=== PATIENT | male | born 1970 | race Caucasian/White ===

== ENCOUNTER 2020-08-07 08:25 | Emergency (ER) | payer OTHER ==
[~2020-08-07] VITALS: Ht 175.3 cm; Wt 61.4 kg
[~2020-08-07 08:25] MED LIST: LIDOcaine 1% 30ml preserv. free vial ONE; NICO-687 TD; OXYC-150 PO
[2020-08-07 08:39] VITALS: BP 154/100
[2020-08-07] MEDS ORDERED: LIDOcaine 1% 30ml preserv. free vial IJ ONE (08:55)
[2020-08-07] MEDS ORDERED: BUPIVAcaine 0.5% W/EPI /PF 30ml vial SQ ONE ×2 (09:38→09:39)
[2020-08-07] MEDS ORDERED: BUPIVAcaine 0.5% W/EPI /PF 30ml vial IJ ONE (09:39)
== END 2020-08-07 10:20 | disposition home or self-care (01) ==
LOC: ER 08:26
DX: G89.18 Other acute postprocedural pain (principal); M79.605 Pain in left leg; Z98.890 Other specified postprocedural states; F17.200 Nicotine dependence, unspecified, uncomplicated; Z72.89 Other problems related to lifestyle; Z79.899 Other long term (current) drug therapy
CPT/HCPCS: 64447; 99284; J2001; 64450

== ENCOUNTER 2020-08-09 11:20 | Emergency (ER) | payer OTHER ==
[~2020-08-09] VITALS: Ht 175.3 cm; Wt 70.0 kg
[~2020-08-09 11:20] MED LIST changes: -LIDOcaine 1% 30ml preserv. free vial ONE
[2020-08-09 11:33] VITALS: BP 120/80
--- NOTE | 2020-08-09 14:22 | NUR ---
NOT IN LOBBY
[2020-08-10] MEDS ORDERED: HYDR-3965 PO (11:18)
== END 2020-08-09 14:23 | disposition left against medical advice (07) ==
LOC: ER 11:20
DX: T83.091A Other mechanical complication of indwelling urethral catheter, initial encounter (principal); Z53.21 Procedure and treatment not carried out due to patient leaving prior to being seen by health care provider

== ENCOUNTER 2020-08-10 09:48 | Emergency (ER) | payer OTHER ==
[~2020-08-10] VITALS: Ht 175.3 cm; Wt 70.0 kg
[2020-08-10 10:00] VITALS: BP 139/89
[2020-08-10] MEDS ORDERED: HYDR-3965 PO (11:18)
[2020-08-10] MEDS ORDERED: HYDROcodone/acetaminophen 10/325mg tab PO ONE (11:35)
== END 2020-08-10 11:51 | disposition home or self-care (01) ==
LOC: ER 09:48
DX: M96.840 Postprocedural hematoma of a musculoskeletal structure following a musculoskeletal system procedure (principal); Z87.81 Personal history of (healed) traumatic fracture; Z72.89 Other problems related to lifestyle; Z98.890 Other specified postprocedural states; Z79.899 Other long term (current) drug therapy; Y84.6 Urinary catheterization as the cause of abnormal reaction of the patient, or of later complication, without mention of misadventure at the time of the procedure; Y79.1 Therapeutic (nonsurgical) and rehabilitative orthopedic devices associated with adverse incidents; Y92.89 Other specified places as the place of occurrence of the external cause
CPT/HCPCS: 99283

== ENCOUNTER 2020-09-23 21:05 | Inpatient (IN) | payer OTHER ==
[~2020-09-23] VITALS: Ht 177.8 cm; Wt 63.6 kg
[~2020-09-23 21:05] MED LIST changes: +ASPI-1 PO; +CELE100C98 PO; +GABA300C PO; -NICO-687 TD; -OXYC-150 PO; +OXYC1TAB17 PO; +SENN-173 PO
[2020-09-23 21:40] LABS: BASOPHILS # (AUTO) 0.1 X10'3 (0-0.2); BASOPHILS % (AUTO) 1.1 % (0-1); EOSINOPHILS # (AUTO) 0.2 X10'3 (0-0.9); EOSINOPHILS % (AUTO) 2.6 % (0-6); HEMATOCRIT 37.6 % (42.0-52.0); LYMPHOCYTES # (AUTO) 1.7 X10'3 (1.1-4.8); LYMPHOCYTES % (AUTO) 17.9 % (21-51); MEAN CORPUSCULAR HEMOGLOBIN 33.5 PG (27.0-31.0); MEAN CORPUSCULAR HGB CONC 34.7 g/dL (33.0-36.5); MEAN CORPUSCULAR VOLUME 96.6 FL (78-98); MEAN PLATELET VOLUME 7.6 FL (7.4-10.4); MONOCYTES # (AUTO) 0.9 X10'3 (0-0.9); MONOCYTES % (AUTO) 9.6 % (2-12); NEUTROPHILS # (AUTO) 6.4 X10'3 (1.8-7.7); NEUTROPHILS % (AUTO) 68.8 % (42-75); PLATELET COUNT 224 X10'3 (140-440); RED BLOOD COUNT 3.89 X10'6 (4.70-6.10); RED CELL DISTRIBUTION WIDTH 13.3 % (11.5-14.5); WHITE BLOOD COUNT 9.3 X10'3 (4.5-11.0)
[2020-09-23 21:50] LABS: ALANINE AMINOTRANSFERASE 23 U/L (12-78); ALBUMIN 3.7 G/DL (3.4-5.0); ALBUMIN/GLOBULIN RATIO 0.9 (1.1-1.5); ALKALINE PHOSPHATASE 87 IU/L (46-116); ANION GAP 8 (8-16); ASPARTATE AMINO TRANSFERASE 21 U/L (10-37); BILIRUBIN,TOTAL 0.3 MG/DL (0.1-1.0); BLOOD UREA NITROGEN 12 MG/DL (7-18); BUN/CREATININE RATIO 12.9 (5.4-32.0); CALCIUM 8.7 MG/DL (8.5-10.1); CHLORIDE 100 MMOL/L (99-107); CREATININE 0.93 MG/DL (0.60-1.10); GLUCOSE 115 MG/DL (70-104); POTASSIUM 3.9 MMOL/L (3.5-5.1); SODIUM 133 MMOL/L (135-145); TOTAL CARBON DIOXIDE 25.1 MMOL/L (24-32); TOTAL PROTEIN 7.6 G/DL (6.4-8.2); eGFR 86 ML/MIN
[2020-09-23] MEDS ORDERED: vancomycin/NS 1 GM ADD-VANTAGE 250 ML IV ONE (22:20)
[2020-09-23] MEDS ORDERED: normal saline 1000ml 1,000 ML IV ONE (22:20)
[2020-09-23] MEDS ORDERED: morphine 4 MG/ML inj SYRINge IV ONE ×2 (22:20→23:55)
[2020-09-23] MEDS ORDERED: piperacillin/tazo 3.375gm/50ml 50 ML IV ONE (22:20)
[2020-09-23] MEDS ORDERED: ondansetron/PF 4mg/2ml inj IV ONE ×2 (22:20→22:40)
[2020-09-23 22:25] LABS: CLARITY,URINE CLEAR (Clear); COLOR,URINE STRAW (Yellow); GLUCOSE, URINE NEGATIVE (Neg); KETONES,URINE NEGATIVE (Neg); LEUKOCYTE ESTERASE ,URINE NEGATIVE (Neg); NITRITES, URINE NEGATIVE (Neg); OCCULT BLOOD,URINE NEGATIVE (Neg); PROTEIN,URINE NEGATIVE (Neg); UA COLLECTION TYPE URINAL; UROBILINOGEN,URINE 0.2 E.U/dL (0.2-1.0)
[2020-09-24] MEDS ORDERED: PER5325T PO (00:48)
[2020-09-24] MEDS ORDERED: CELE-193 PO (00:48)
[2020-09-24] MEDS ORDERED: ASPI-1265 PO (00:48)
[2020-09-24] MEDS ORDERED: GABA-530 PO (00:48)
[2020-09-24] MEDS ORDERED: oxyCODONE/APAP 5-325mg tablet PO ONE (01:30)
[2020-09-24] MEDS ORDERED: potassium Cl 40MEQ/1/2NS 520ml 520 ML IV PRN ×2 (01:50)
[2020-09-24] MEDS ORDERED: normal saline 1000ml 1,000 ML IV SCH (01:50)
[2020-09-24] MEDS ORDERED: ondansetron/PF 4mg/2ml inj IV PRN (01:50)
[2020-09-24] MEDS ORDERED: acetaminophen 325mg tablet PO PRN (01:50)
[2020-09-24] MEDS: nicotine 7mg patch - 24hr TD SCH (01:58)
[2020-09-24] MEDS: HYDROmorphone 1 mg/ml syringe IV PRN (05:31)
--- NOTE | 2020-09-24 07:43 | NUR ---
Patient in room ED 6. I have received report from Itzel Aguila from ED and had the opportunity to ask questions and assume patient care.
[2020-09-24 08:00] VITALS: BP 115/74
[2020-09-24] MEDS: K and/or MAG REPLACEMENT MC SCH ×2 (08:00→20:00)
[2020-09-24] MEDS ORDERED: piperacillin/tazo 3.375gm/50ml 50 ML IV SCH (08:00)
[2020-09-24] MEDS ORDERED: oxyCODONE/APAP 10/325mg tablet PO PRN (08:05)
[2020-09-24] MEDS: oxyCODONE/APAP 10/325mg tablet PO PRN ×4 (08:20→21:13)
[2020-09-24 10:00] VITALS: BP 127/88
--- NOTE | 2020-09-24 10:30 | NUR ---
Student documentation: I have reviewed and agree with all interventions, assessments performed and documented by Liss PAULSON.
[2020-09-24] MEDS: vancomycin/NS 1 GM ADD-VANTAGE 250 ML IV SCH ×2 (12:00→22:06)
--- NOTE | 2020-09-24 16:27 | NUR ---
Problems reprioritized. Patient report given, questions answered & plan of care reviewed with nicol RN in surgical .
[2020-09-24] MEDS: CEFEPIME 2gm in D5W 50mL 50 ML IV SCH (16:40)
[2020-09-24 18:00] VITALS: BP 123/80
--- NOTE | 2020-09-24 18:16 | NUR ---
PAGER ID: [phone] MESSAGE: Javier Collins#[id number] - Pt is very itchy can he please have some Benadryl. Thank you, Yarelis [phone]
--- NOTE | 2020-09-24 18:17 | NUR ---
Problems reprioritized. Patient report given, questions answered & plan of care reviewed with Andrea Aguila traveler nurse.
--- NOTE | 2020-09-24 18:32 | NUR ---
Patient in room ORTHO 4020. I have received report from WENDY Santoyo and had the opportunity to ask questions and assume patient care.
[2020-09-24] MEDS: diphenhydrAMINE 25mg capsule PO PRN (19:00)
[2020-09-24] MEDS: lactobacillus rhamnosus 10,000 MMU CELLS/CAPSULE PO SCH (20:34)
[2020-09-24 21:31] VITALS: BP 128/78
[2020-09-25] VITALS (23 sets, daily range): BP systolic 116–141; BP diastolic 65–93
[2020-09-25] MEDS: CEFEPIME 2gm in D5W 50mL 50 ML IV SCH ×3 (00:27→16:44)
[2020-09-25] MEDS: oxyCODONE/APAP 10/325mg tablet PO PRN ×4 (01:31→20:53)
[2020-09-25] MEDS: nicotine 7mg patch - 24hr TD SCH ×2 (01:50→07:11)
[2020-09-25 06:08] LABS: BASOPHILS % (AUTO) 0.5 % (0-1); EOSINOPHILS # (AUTO) 0.2 X10'3 (0-0.9); HEMATOCRIT 37.5 % (42.0-52.0); HEMOGLOBIN 13.1 g/dl (14.0-17.9); MEAN PLATELET VOLUME 7.8 FL (7.4-10.4); MONOCYTES # (AUTO) 1.2 X10'3 (0-0.9)
[2020-09-25 06:11] LABS: LYMPHOCYTES % (AUTO) 10.5 % (21-51); MEAN CORPUSCULAR VOLUME 96.9 FL (78-98); MONOCYTES % (AUTO) 12.3 % (2-12); NEUTROPHILS # (AUTO) 7.4 X10'3 (1.8-7.7); NEUTROPHILS % (AUTO) 74.7 % (42-75); PLATELET COUNT 230 X10'3 (140-440); RED BLOOD COUNT 3.87 X10'6 (4.70-6.10); RED CELL DISTRIBUTION WIDTH 13.1 % (11.5-14.5); WHITE BLOOD COUNT 9.9 X10'3 (4.5-11.0)
--- NOTE | 2020-09-25 06:18 | NUR ---
Problems reprioritized. Patient report given, questions answered & plan of care reviewed with WENDY Gonzáles.
[2020-09-25 06:30] LABS: ALANINE AMINOTRANSFERASE 23 U/L (12-78); ALBUMIN 3.1 G/DL (3.4-5.0); ALBUMIN/GLOBULIN RATIO 0.8 (1.1-1.5); ALKALINE PHOSPHATASE 75 IU/L (46-116); ANION GAP 7 (8-16); ASPARTATE AMINO TRANSFERASE 16 U/L (10-37); BILIRUBIN,TOTAL 0.6 MG/DL (0.1-1.0); BLOOD UREA NITROGEN 7 MG/DL (7-18); BUN/CREATININE RATIO 7.7 (5.4-32.0); CALCIUM 9.2 MG/DL (8.5-10.1); CHLORIDE 101 MMOL/L (99-107); CREATININE 0.91 MG/DL (0.60-1.10); GLUCOSE 118 MG/DL (70-104); SODIUM 138 MMOL/L (135-145); eGFR 88 ML/MIN
[2020-09-25] MEDS: diphenhydrAMINE 25mg capsule PO PRN ×2 (07:10→16:51)
[2020-09-25] MEDS: lactobacillus rhamnosus 10,000 MMU CELLS/CAPSULE PO SCH ×2 (07:10→23:31)
[2020-09-25] MEDS: K and/or MAG REPLACEMENT MC SCH ×2 (07:19→20:00)
[2020-09-25] MEDS ORDERED: ringers solution, lacted 1,000 ML IV SCH ×2 (09:55→11:40)
[2020-09-25] MEDS ORDERED: VANCOMYCIN LEVEL IV ONE ×2 (10:30→22:30)
[2020-09-25] MEDS: vancomycin/NS 1 GM ADD-VANTAGE 250 ML IV SCH ×2 (11:26→23:31)
[2020-09-25] MEDS ORDERED: morphine 4 MG/ML inj SYRINge IV PRN (11:40)
[2020-09-25] MEDS ORDERED: fentaNYL/PF 50MCG/1 ML 2ML syringe IV PRN ×2 (11:40)
[2020-09-25] MEDS ORDERED: hydrALAZINE 20mg/ml inj. IV PRN (11:40)
[2020-09-25] MEDS ORDERED: labetalol 20mg/4ml (5mg/ml) syringe IV PRN (11:40)
[2020-09-25] MEDS ORDERED: ondansetron/PF 4mg/2ml inj IV PRN (11:40)
[2020-09-25] MEDS ORDERED: morphine 2 MG/ML inj. syringe IV PRN (11:40)
[2020-09-25] MEDS ORDERED: midazolam 1 mg/ML 2ml injection ONE (11:48)
[2020-09-25] MEDS ORDERED: fentaNYL/PF 50MCG/1 ML 2ML syringe ONE (11:48)
[2020-09-25] MEDS ORDERED: propofol inj 20 ML IV ONE (11:49)
[2020-09-25] MEDS ORDERED: LIDOcaine 2% (20mg/ml) 5ml vial ONE (11:49)
[2020-09-25] MEDS ORDERED: BUPIVAcaine/PF 2.5 mg/ml (0.25%) 30ml vial ONE (11:55)
[2020-09-25] MEDS ORDERED: dexamethasone sod phosphate 10mg/ml inj ONE (11:57)
[2020-09-25] MEDS ORDERED: sevoflurane 250ml liquid IH ONE (11:57)
[2020-09-25] MEDS ORDERED: ondansetron/PF 4mg/2ml inj ONE (12:04)
[2020-09-25] MEDS ORDERED: naloxone 0.4 mg/ml inj ONE (12:44)
--- NOTE | 2020-09-25 12:52 | NUR ---
Received from OR via BED, accompanied by Anesthesiologist DR ADAIR and report given by Anesthesiologist. PT AWAKE, DROWSY, DENIES PAIN, LEFT LEG/FOOT FROM TOES TO BELOW KNEE IN SPLINT W/CRISTY WRAP COVERING CDI, TOES PWD, CAD OPERATOR 1-2 SECONDS. LLE ELEVATED ON LEG ELEVATOR. Addendum: 09/25/20 at 1338 by Lou Bass RN Amended: Links added.
[2020-09-25] MEDS ORDERED: meperidine/PF 25mg/ml syringe IV ONE (13:05)
--- NOTE | 2020-09-25 14:02 | NUR ---
Report called to receiving nurse. Transferred via BED, NO Belongings. PT STATES IS COMFORTABLE, LLE REMAINS ELEVATED. RECEIVING RN AT BEDSIDE TO RECEIVE PT, BLL, CALL LIGHT GIVEN, SIDE RAILS UP X 2. Special Issues communicated to receiving nurse. YES. Addendum: 09/25/20 at 1412 by Lou Bass RN Amended: Links added.
--- NOTE | 2020-09-25 18:00 | NUR ---
Patient in room ORTHO 4020. I have received report from Nivia NGUYEN and had the opportunity to ask questions and assume patient care. Addendum: 09/25/20 at 1856 by Abby Argueta RN Amended: Links added.
--- NOTE | 2020-09-25 18:27 | NUR ---
Problems reprioritized. Patient report given, questions answered & plan of care reviewed with Abby Aguila.
--- NOTE | 2020-09-25 22:00 | NUR ---
Pt. awake A & O at this time. Postoperative left ankle in the with short cast in place. Pt. able to winkle toes freely and sensation present on assessment. Reminded pt. about non weight bearing status; pt. verbalized understanding. Call light within reach. Addendum: 09/26/20 at 0326 by Abby Argueta RN Amended: Links added.
[2020-09-26] MEDS: CEFEPIME 2gm in D5W 50mL 50 ML IV SCH (01:36)
[2020-09-26] MEDS: oxyCODONE/APAP 10/325mg tablet PO PRN ×5 (01:48→20:13)
[2020-09-26 01:55] VITALS: BP 117/74
[2020-09-26 05:24] VITALS: BP 107/67
[2020-09-26 06:00] VITALS: BP 107/67
--- NOTE | 2020-09-26 06:00 | NUR ---
Problems reprioritized. Patient report given, questions answered & plan of care reviewed with Nivia NGUYEN. Addendum: 09/26/20 at 0747 by Abby Argueta RN Amended: Links added.
[2020-09-26 06:34] LABS: BASOPHILS % (AUTO) 0.1 % (0-1); EOSINOPHILS % (AUTO) 0 % (0-6); HEMATOCRIT 34.4 % (42.0-52.0); LYMPHOCYTES # (AUTO) 0.5 X10'3 (1.1-4.8); LYMPHOCYTES % (AUTO) 4.8 % (21-51); MEAN CORPUSCULAR HEMOGLOBIN 33.8 PG (27.0-31.0); MEAN CORPUSCULAR VOLUME 96.5 FL (78-98); MEAN PLATELET VOLUME 7.7 FL (7.4-10.4); MONOCYTES # (AUTO) 0.9 X10'3 (0-0.9); MONOCYTES % (AUTO) 8.2 % (2-12); NEUTROPHILS # (AUTO) 9.7 X10'3 (1.8-7.7); NEUTROPHILS % (AUTO) 86.9 % (42-75); PLATELET COUNT 254 X10'3 (140-440); RED BLOOD COUNT 3.57 X10'6 (4.70-6.10); RED CELL DISTRIBUTION WIDTH 13.2 % (11.5-14.5); WHITE BLOOD COUNT 11.2 X10'3 (4.5-11.0)
[2020-09-26 06:40] LABS: ALANINE AMINOTRANSFERASE 15 U/L (12-78); ALBUMIN 2.9 G/DL (3.4-5.0); ALBUMIN/GLOBULIN RATIO 0.7 (1.1-1.5); ALKALINE PHOSPHATASE 69 IU/L (46-116); ANION GAP 8 (8-16); ASPARTATE AMINO TRANSFERASE 14 U/L (10-37); BILIRUBIN,TOTAL 0.4 MG/DL (0.1-1.0); BLOOD UREA NITROGEN 8 MG/DL (7-18); BUN/CREATININE RATIO 10.7 (5.4-32.0); CALCIUM 9.3 MG/DL (8.5-10.1); CHLORIDE 103 MMOL/L (99-107); CREATININE 0.75 MG/DL (0.60-1.10); GLUCOSE 139 MG/DL (70-104); POTASSIUM 4.3 MMOL/L (3.5-5.1); SODIUM 139 MMOL/L (135-145); TOTAL PROTEIN 6.9 G/DL (6.4-8.2); eGFR > 90 ML/MIN
[2020-09-26] MEDS: K and/or MAG REPLACEMENT MC SCH ×2 (08:00→18:49)
[2020-09-26] MEDS: lactobacillus rhamnosus 10,000 MMU CELLS/CAPSULE PO SCH ×2 (08:22→20:07)
[2020-09-26] MEDS: nicotine 7mg patch - 24hr TD SCH (08:23)
[2020-09-26 10:00] VITALS: BP 126/74
[2020-09-26] MEDS ORDERED: VANCOMYCIN LEVEL IV ONE (10:30)
[2020-09-26] MEDS: vancomycin/NS 1 GM ADD-VANTAGE 250 ML IV SCH (10:57)
[2020-09-26] MEDS: miconazole nitrate cream 57gm TP SCH (13:26)
[2020-09-26] MEDS: HYDROmorphone 1 mg/ml syringe IV PRN (17:34)
[2020-09-26 18:09] VITALS: BP 108/64
--- NOTE | 2020-09-26 18:30 | NUR ---
Report rec'd from benjy Gonzáles.
[2020-09-27] MEDS: oxyCODONE/APAP 10/325mg tablet PO PRN ×4 (00:29→17:30)
[2020-09-27 01:19] VITALS: BP 124/74
[2020-09-27 06:00] VITALS: BP 131/82
[2020-09-27 06:36] LABS: ALANINE AMINOTRANSFERASE 21 U/L (12-78); ALBUMIN 2.9 G/DL (3.4-5.0); ALBUMIN/GLOBULIN RATIO 0.7 (1.1-1.5); ALKALINE PHOSPHATASE 61 IU/L (46-116); ANION GAP 5 (8-16); ASPARTATE AMINO TRANSFERASE 14 U/L (10-37); BILIRUBIN,TOTAL 0.2 MG/DL (0.1-1.0); BLOOD UREA NITROGEN 10 MG/DL (7-18); BUN/CREATININE RATIO 11.9 (5.4-32.0); CALCIUM 9.1 MG/DL (8.5-10.1); CHLORIDE 104 MMOL/L (99-107); CREATININE 0.84 MG/DL (0.60-1.10); GLUCOSE 99 MG/DL (70-104); POTASSIUM 3.4 MMOL/L (3.5-5.1); SODIUM 139 MMOL/L (135-145); TOTAL CARBON DIOXIDE 29.6 MMOL/L (24-32); TOTAL PROTEIN 6.8 G/DL (6.4-8.2); eGFR > 90 ML/MIN
--- NOTE | 2020-09-27 06:38 | NUR ---
Report given to benjy Trujillo.
--- NOTE | 2020-09-27 06:40 | NUR ---
Patient in room ORTHO 4020. I have received report from Leidy NGUYEN and had the opportunity to ask questions and assume patient care.
[2020-09-27 06:41] LABS: BASOPHILS # (AUTO) 0.1 X10'3 (0-0.2); EOSINOPHILS # (AUTO) 0.1 X10'3 (0-0.9); EOSINOPHILS % (AUTO) 1.3 % (0-6); HEMATOCRIT 33.4 % (42.0-52.0); HEMOGLOBIN 11.7 g/dl (14.0-17.9); LYMPHOCYTES # (AUTO) 1.9 X10'3 (1.1-4.8); MEAN CORPUSCULAR HEMOGLOBIN 34.1 PG (27.0-31.0); MEAN CORPUSCULAR HGB CONC 35.1 g/dL (33.0-36.5); MEAN CORPUSCULAR VOLUME 97.2 FL (78-98); MEAN PLATELET VOLUME 7.5 FL (7.4-10.4); MONOCYTES # (AUTO) 0.6 X10'3 (0-0.9); MONOCYTES % (AUTO) 9.2 % (2-12); NEUTROPHILS # (AUTO) 3.8 X10'3 (1.8-7.7); NEUTROPHILS % (AUTO) 59.5 % (42-75); PLATELET COUNT 263 X10'3 (140-440); RED BLOOD COUNT 3.44 X10'6 (4.70-6.10); RED CELL DISTRIBUTION WIDTH 13.3 % (11.5-14.5); WHITE BLOOD COUNT 6.5 X10'3 (4.5-11.0)
[2020-09-27] MEDS ORDERED: potassium Cl 20 mEq SR tablet PO PRN ×2 (08:15)
[2020-09-27] MEDS ORDERED: magnesium 4gm in 100ml NS 100 ML IV PRN (08:15)
[2020-09-27] MEDS ORDERED: potassium Cl 40MEQ/1/2NS 520ml 520 ML IV PRN (08:15)
[2020-09-27] MEDS ORDERED: magnesium Cl slow-release 64mg tablet PO PRN (08:15)
[2020-09-27] MEDS: lactobacillus rhamnosus 10,000 MMU CELLS/CAPSULE PO SCH ×2 (08:19→19:30)
[2020-09-27] MEDS: nicotine 7mg patch - 24hr TD SCH (08:20)
[2020-09-27] MEDS: miconazole nitrate cream 57gm TP SCH (08:24)
[2020-09-27] MEDS: K and/or MAG REPLACEMENT MC SCH ×2 (08:32→18:50)
[2020-09-27 10:00] VITALS: BP 121/79
[2020-09-27] MEDS: cefazolin/dext.iso 2gm/100ml 100 ML IV SCH ×3 (10:22→23:55)
--- NOTE | 2020-09-27 17:57 | NUR ---
Report rec'd from WENDY Trujillo.
--- NOTE | 2020-09-27 18:30 | NUR ---
Problems reprioritized. Patient report given, questions answered & plan of care reviewed with Leidy NGUYEN.
[2020-09-27 20:00] VITALS: BP 117/75
[2020-09-28] MEDS: oxyCODONE/APAP 10/325mg tablet PO PRN ×5 (00:06→20:37)
[2020-09-28 05:56] LABS: BASOPHILS # (AUTO) 0.1 X10'3 (0-0.2); BASOPHILS % (AUTO) 1.1 % (0-1); EOSINOPHILS # (AUTO) 0.2 X10'3 (0-0.9); EOSINOPHILS % (AUTO) 4.1 % (0-6); HEMATOCRIT 37.3 % (42.0-52.0); HEMOGLOBIN 12.9 g/dl (14.0-17.9); LYMPHOCYTES # (AUTO) 1.7 X10'3 (1.1-4.8); MEAN CORPUSCULAR HEMOGLOBIN 33.2 PG (27.0-31.0); MEAN CORPUSCULAR HGB CONC 34.7 g/dL (33.0-36.5); MEAN CORPUSCULAR VOLUME 95.7 FL (78-98); MEAN PLATELET VOLUME 7.3 FL (7.4-10.4); MONOCYTES # (AUTO) 0.7 X10'3 (0-0.9); MONOCYTES % (AUTO) 11.4 % (2-12); NEUTROPHILS # (AUTO) 3.3 X10'3 (1.8-7.7); NEUTROPHILS % (AUTO) 54.4 % (42-75); PLATELET COUNT 332 X10'3 (140-440); RED BLOOD COUNT 3.89 X10'6 (4.70-6.10); RED CELL DISTRIBUTION WIDTH 13.2 % (11.5-14.5)
[2020-09-28 06:00] VITALS: BP 123/82
[2020-09-28 06:08] LABS: ALANINE AMINOTRANSFERASE 20 U/L (12-78); ALBUMIN 3.1 G/DL (3.4-5.0); ALBUMIN/GLOBULIN RATIO 0.8 (1.1-1.5); ALKALINE PHOSPHATASE 62 IU/L (46-116); ANION GAP 9 (8-16); ASPARTATE AMINO TRANSFERASE 18 U/L (10-37); BILIRUBIN,TOTAL 0.1 MG/DL (0.1-1.0); BLOOD UREA NITROGEN 8 MG/DL (7-18); BUN/CREATININE RATIO 10.3 (5.4-32.0); CALCIUM 9.1 MG/DL (8.5-10.1); CHLORIDE 103 MMOL/L (99-107); CREATININE 0.78 MG/DL (0.60-1.10); GLUCOSE 90 MG/DL (70-104); MAGNESIUM 1.9 MG/DL (1.5-2.4); POTASSIUM 3.9 MMOL/L (3.5-5.1); SODIUM 138 MMOL/L (135-145); TOTAL CARBON DIOXIDE 26.2 MMOL/L (24-32); eGFR > 90 ML/MIN
--- NOTE | 2020-09-28 06:32 | NUR ---
Report given to benjy Dowell.
[2020-09-28] MEDS: lactobacillus rhamnosus 10,000 MMU CELLS/CAPSULE PO SCH ×2 (07:15→20:36)
[2020-09-28] MEDS: nicotine 7mg patch - 24hr TD SCH (07:19)
[2020-09-28] MEDS: cefazolin/dext.iso 2gm/100ml 100 ML IV SCH ×2 (07:23→16:05)
[2020-09-28] MEDS: K and/or MAG REPLACEMENT MC SCH ×2 (08:00→19:29)
[2020-09-28 10:00] VITALS: BP 122/65
--- NOTE | 2020-09-28 10:19 | NUR ---
Attempted to place PICC line x4 but unable to thread catheter past approx 15 to 20cm with after positioning maneuvers. Access difficult as well. Patient RN made aware and calling MD for alternative. Addendum: 09/29/20 at 1035 by Rosemarie Haas RN Amended: Links added.
[2020-09-28] MEDS ORDERED: VANCOMYCIN LEVEL IV ONE (10:30)
[2020-09-28] MEDS: miconazole nitrate cream 57gm TP SCH (12:18)
[2020-09-28 14:00] VITALS: BP 112/65
[2020-09-28 18:16] VITALS: BP 128/82
[2020-09-28] MEDS: enoxaparin 40mg/0.4ml syringe SUBCUT SCH (20:37)
[2020-09-28 22:00] VITALS: BP 121/79
[2020-09-29] MEDS: cefazolin/dext.iso 2gm/100ml 100 ML IV SCH ×3 (00:31→17:16)
[2020-09-29] MEDS: oxyCODONE/APAP 10/325mg tablet PO PRN ×6 (00:32→21:56)
--- NOTE | 2020-09-29 06:02 | NUR ---
Report given to Catherine NGUYEN.
[2020-09-29 06:04] LABS: BASOPHILS # (AUTO) 0.1 X10'3 (0-0.2); BASOPHILS % (AUTO) 0.9 % (0-1); EOSINOPHILS # (AUTO) 0.4 X10'3 (0-0.9); EOSINOPHILS % (AUTO) 5.8 % (0-6); HEMATOCRIT 39.8 % (42.0-52.0); LYMPHOCYTES # (AUTO) 1.8 X10'3 (1.1-4.8); LYMPHOCYTES % (AUTO) 27.7 % (21-51); MEAN CORPUSCULAR HEMOGLOBIN 33.5 PG (27.0-31.0); MEAN CORPUSCULAR HGB CONC 35.1 g/dL (33.0-36.5); MEAN CORPUSCULAR VOLUME 95.5 FL (78-98); MEAN PLATELET VOLUME 7.1 FL (7.4-10.4); MONOCYTES # (AUTO) 0.8 X10'3 (0-0.9); NEUTROPHILS # (AUTO) 3.4 X10'3 (1.8-7.7); NEUTROPHILS % (AUTO) 52.6 % (42-75); PLATELET COUNT 396 X10'3 (140-440); RED BLOOD COUNT 4.17 X10'6 (4.70-6.10); RED CELL DISTRIBUTION WIDTH 13.3 % (11.5-14.5); WHITE BLOOD COUNT 6.4 X10'3 (4.5-11.0)
[2020-09-29 06:32] LABS: ALANINE AMINOTRANSFERASE 27 U/L (12-78); ALBUMIN 3.4 G/DL (3.4-5.0); ALBUMIN/GLOBULIN RATIO 0.8 (1.1-1.5); ALKALINE PHOSPHATASE 80 IU/L (46-116); ANION GAP 6 (8-16); ASPARTATE AMINO TRANSFERASE 20 U/L (10-37); BILIRUBIN,TOTAL 0.2 MG/DL (0.1-1.0); BLOOD UREA NITROGEN 11 MG/DL (7-18); BUN/CREATININE RATIO 11.6 (5.4-32.0); CALCIUM 9.4 MG/DL (8.5-10.1); CHLORIDE 101 MMOL/L (99-107); CREATININE 0.95 MG/DL (0.60-1.10); GLUCOSE 90 MG/DL (70-104); MAGNESIUM 2.1 MG/DL (1.5-2.4); POTASSIUM 4.1 MMOL/L (3.5-5.1); SODIUM 138 MMOL/L (135-145); TOTAL CARBON DIOXIDE 30.7 MMOL/L (24-32); TOTAL PROTEIN 7.6 G/DL (6.4-8.2); eGFR 84 ML/MIN
--- NOTE | 2020-09-29 06:38 | NUR ---
Patient in room ORTHO 4020. I have received report from Hailey NGUYEN and had the opportunity to ask questions and assume patient care.
[2020-09-29 06:55] VITALS: BP 115/82
[2020-09-29] MEDS: lactobacillus rhamnosus 10,000 MMU CELLS/CAPSULE PO SCH ×2 (08:03→21:55)
[2020-09-29] MEDS: nicotine 7mg patch - 24hr TD SCH (08:03)
[2020-09-29] MEDS: miconazole nitrate cream 57gm TP SCH (08:04)
[2020-09-29] MEDS: K and/or MAG REPLACEMENT MC SCH ×2 (08:14→20:00)
--- NOTE | 2020-09-29 09:37 | NUR ---
Text Rosemarie Márquez NP concerning patients concerns about getting pictures taken of his leg and sending to Dr. Gandhi. Will continue to monitor. Addendum: 09/29/20 at 1244 by Catherine Mcdonough RN Wrong entry on wrong patient . Please Void
[2020-09-29] MEDS ORDERED: APIX5TAB3 PO (10:04)
[2020-09-29] MEDS ORDERED: PER5325T PO (10:04)
--- NOTE | 2020-09-29 10:56 | NUR ---
Dr. Nicolas aware of PICC line issue, he states that he will call CHIOMA SANTIZO.
[2020-09-29] MEDS ORDERED: LORazepam 2 mg/ml vial IV ONE (11:40)
--- NOTE | 2020-09-29 13:03 | NUR ---
Patient asking when and if the PICC line is going to be placed today. Educted patient that he has an order for MS if needed and an order for Ativan if needed.
--- NOTE | 2020-09-29 13:05 | NUR ---
PICC line WENDY Houston called to inform that she will be here to do the PICC when she is done going to lunch.
[2020-09-29] MEDS ORDERED: HYDROmorphone inj. 0.5 MG/0.5 ML DISP.SYRIN IV ONE (13:55)
--- NOTE | 2020-09-29 13:57 | NUR ---
Initial: Pt admit w/ LE cellulitis s/p recent L ankle surgery s/p hardware removal for infection this admit per EMR. PO 75-100% avg regular diet meeting needs. [facility] 09/28. Will continue to monitor. Rec: 1. continue regular diet 2. routine bowel care 3. scaled wt this admit Addendum: 09/29/20 at [address] Amended: Links added.
--- NOTE | 2020-09-29 15:08 | NUR ---
Picc line nurse at bedside.
[2020-09-29] MEDS: morphine 2 MG/ML inj. syringe IV PRN (15:14)
[2020-09-29 18:30] VITALS: BP 125/74
[2020-09-29] MEDS: enoxaparin 40mg/0.4ml syringe SUBCUT SCH (21:55)
[2020-09-29 22:00] VITALS: BP 102/53
[2020-09-30] MEDS: cefazolin/dext.iso 2gm/100ml 100 ML IV SCH ×2 (00:30→08:59)
[2020-09-30] MEDS: oxyCODONE/APAP 10/325mg tablet PO PRN (02:09)
[2020-09-30 06:00] VITALS: BP 107/77
[2020-09-30 06:09] LABS: POTASSIUM 4.1 MMOL/L (3.5-5.1)
--- NOTE | 2020-09-30 06:46 | NUR ---
Patient in room ORTHO 4020. I have received report from Diana RN and had the opportunity to ask questions and assume patient care.
[2020-09-30] MEDS: lactobacillus rhamnosus 10,000 MMU CELLS/CAPSULE PO SCH (08:00)
[2020-09-30] MEDS: K and/or MAG REPLACEMENT MC SCH (08:00)
[2020-09-30] MEDS: miconazole nitrate cream 57gm TP SCH (08:00)
[2020-09-30] MEDS: morphine 2 MG/ML inj. syringe IV PRN ×2 (09:00→15:04)
[2020-09-30] MEDS: nicotine 7mg patch - 24hr TD SCH (09:04)
[2020-09-30 11:00] VITALS: BP 106/74
[2020-09-30] MEDS ORDERED: LIDOcaine 1%/PF 5ML 10 MG/ML VIAL ONE ×2 (13:30→13:31)
[2020-09-30] MEDS ORDERED: fentaNYL/PF 50MCG/1 ML 2ML syringe ONE (13:31)
[2020-09-30] MEDS ORDERED: midazolam 1 mg/ML 2ml injection ONE (13:31)
--- NOTE | 2020-09-30 15:07 | NUR ---
patient very upset and agitated this am waiting for placement of groshong . DR Nicolas into see patient.
--- NOTE | 2020-09-30 15:09 | NUR ---
Groshong placed patient stable on post op vitals. No drainage around dresing noticed. patient is for discharge. Awaiting approval of [employer] with insurance per Anali entry manager.
--- NOTE | 2020-09-30 16:26 | NUR ---
Miguel A approved, patient stable on post ops. VS. Dr Nicolas informed of patients discharge. Patient will hand picker ABX at [facility]. stable for discharge. All Dc instructions given to patient. patient DC home via private car with friend
--- NOTE | 2020-10-02 16:07 | NUR ---
CASE MANAGEMENT DISCHARGE FOLLOW UP: Spoke with pt via telephone. Reports that he is doing okay, does still have pain in his ankle, c/o pain at catheter site (states from sleeping on it); denies CP, SOB, fever/chills, s/sx infection. Verbalizes understanding of s/sx requiring further evaluation/emergent assistance. Verbalizes understanding of new and current medications, states has everything he needs for abx administration at home, will go in Monday to the infusion center. Verbalizes compliance with MD discharge instructions. Verbalizes understanding of the importance in making/keeping follow-up appointments, has f/u with PMD next (10/08/20). Pt does express some frustration regarding not being able to go home with a PICC, states there were 2 attempts made and felt that the nurse was distracted which is why catheter couldn't be placed. Wishes they could have have placed PICC as tunneled central cath is very uncomfortable. States no further questions/concerns at this time. 1612 T/c to pharmacy, medication ready for orange picker machine operator. 1614 T/c to pt, notified that medication ready for orange picker machine operator.
== END 2020-09-30 15:50 | disposition home or self-care (01) | DRG 908 ==
LOC: ER 21:06 → ED HOLD 09-24 01:46 → ORTHO 4S 09-24 07:58 → PACU 09-25 13:00 → ORTHO 4S 09-25 14:00
PROVIDERS: ADMIT Internal Medicine; ATTEND Family Medicine
PROC: BQ2S1ZZ Computerized Tomography (CT Scan) of Left Lower Extremity using Low Osmolar Contrast (ICD-10-PCS; 2020-09-23)
PROC: 0HBLXZZ Excision of Left Lower Leg Skin, External Approach (ICD-10-PCS; 2020-09-25)
PROC: 0QPH35Z Removal of External Fixation Device from Left Tibia, Percutaneous Approach (ICD-10-PCS; principal; 2020-09-25 11:57)
PROC: 05JY3ZZ Inspection of Upper Vein, Percutaneous Approach (ICD-10-PCS; 2020-09-29)
PROC: 0JH63XZ Insertion of Tunneled Vascular Access Device into Chest Subcutaneous Tissue and Fascia, Percutaneous Approach (ICD-10-PCS; 2020-09-30)
PROC: 02H633Z Insertion of Infusion Device into Right Atrium, Percutaneous Approach (ICD-10-PCS; 2020-09-30)
PROC: B548ZZA Ultrasonography of Superior Vena Cava, Guidance (ICD-10-PCS; 2020-09-30)
DX: T85.79XA Infection and inflammatory reaction due to other internal prosthetic devices, implants and grafts, initial encounter (principal); L03.116 Cellulitis of left lower limb; M86.8X7 Other osteomyelitis, ankle and foot; Z20.822 Contact with and (suspected) exposure to COVID-19; Y83.8 Other surgical procedures as the cause of abnormal reaction of the patient, or of later complication, without mention of misadventure at the time of the procedure; F12.90 Cannabis use, unspecified, uncomplicated; B95.61 Methicillin susceptible Staphylococcus aureus infection as the cause of diseases classified elsewhere; F17.210 Nicotine dependence, cigarettes, uncomplicated; Z79.82 Long term (current) use of aspirin; Z79.899 Other long term (current) drug therapy; Y92.89 Other specified places as the place of occurrence of the external cause
CPT/HCPCS: 36558; 36573; 96365; 99285; Z7506; 36415; 73701; 76937; 80053; 80202; 81003; 82948; 83605; 83735; 84132; 84145; 85025; 85651; 86885; 86900; 86901; 87040; 87070; 87077; 87081; 87186; 87635; 93005; 99152; 99153; A4215; A4618; A6222; A6449; A7000; A9270; C1751; C1769; C1894; G0378; J0692; J1100; J1170; J1650; J2001; J2175; J2250; J2270; J2310; J2405; J2543; J2704; J3010; J3370; J3490; J7030; J7120; Q0163

== ENCOUNTER 2021-05-28 20:55 | Emergency (ER) | payer SELFPAY ==
[~2021-05-28] VITALS: Ht 175.3 cm; Wt 61.4 kg
[~2021-05-28 20:55] MED LIST changes: +APIX5TAB3 PO; -ASPI-1 PO; +ASPI-1265 PO; +CELE-193 PO; -CELE100C98 PO; +GABA-530 PO; -GABA300C PO; -OXYC1TAB17 PO; +PER5325T PO; -SENN-173 PO
[2021-05-28 21:13] VITALS: BP 135/91
== END 2021-05-29 01:19 | disposition left against medical advice (07) ==
LOC: ER 20:57
DX: S61.211A Laceration without foreign body of left index finger without damage to nail, initial encounter (principal); Z53.21 Procedure and treatment not carried out due to patient leaving prior to being seen by health care provider; W26.0XXA Contact with knife, initial encounter; Y93.89 Activity, other specified; Y92.89 Other specified places as the place of occurrence of the external cause; Y99.8 Other external cause status
CPT/HCPCS: 73140